=== PATIENT | male | born 2005 | race Two or more races ===

== ENCOUNTER 2025-05-24 13:00 | Emergency (ER) | payer OTHER ==
[~2025-05-24] VITALS: Ht 185.4 cm; Wt 77.2 kg
[2025-05-24 13:15] VITALS: BP 138/91; PULSE 89; RESP 15; O2SAT 99
--- NOTE | 2025-05-24 13:51 | RADIOLOGY REPORT ---
EXAM: DI HAND, COMPLETE (3VW MIN) CLINICAL INDICATION: HAND PAIN TECHNIQUE: DI HAND, COMPLETE (3VW MIN) Comparison: None FINDINGS/IMPRESSION: There is no evidence of acute fracture or dislocation. There is a radiopaque foreign body in the subcutaneous tissue between the 4th and 5th digits. The alignment is anatomical.
[2025-05-24] MEDS ORDERED: LIDOcaine 1% W/epiNEPHrine 1:200,000 10ml vial IJ STA (15:25)
[2025-05-24] MEDS: naproxen 500mg tablet PO ONE (16:12)
[2025-05-24] MEDS: TETanus/Pertussis (Acell)/Diphther VAC/PF (Tdap-Adult) 0.5ml syringe IMVAC ONE (16:14)
[2025-05-24] MEDS: LIDOcaine 1% W/epiNEPHrine 1:100,000 20ml vial IJ STA (16:16)
--- NOTE | 2025-05-24 16:38 | Physician Documentation ---
History of Present Illness ~ Chief Complaint: Foreign body Stated Complaint: NAIL IN FINGER Time Seen by MD: 15:25 OK to notify your PCP?: Yes Source: patient Mode of Arrival: POV Exam Limitations: no limitations HPI 19-year-old male presents with dewin staple to left pinky finger at the palmar side which occurred prior to coming in today. Tetanus unknown. No pain medication taken prior to arrival. Medication Reconciliation Allergies: Coded Allergies: No Known Allergies (Unverified , 05/24/25) Scheduled Cephalexin*Monohydrate* (Keflex*), 1 CAP PO Q8H Review of Systems All Other Systems at this time: Reviewed and Negative Physical Exam Vital Signs: RN Vital Signs have been reviewed: Yes, Temperature: 99.0, Source: Temporal, Heart Rate: 89, Respiratory Rate: 15, BP: 138/91, Pulse Oximetry: 99, Weight: 77.200 Pulse Oximetry Reflects: adequate oxygenation Physical Exam General: Alert, no distress. HEENT: No injection, moist mucous membranes. Neck: Full range of motion. Respiratory: No respiratory distress, equal chest rise and fall. Chest: No accessory muscle use. Cardiovascular: Regular rate and rhythm. Gastrointestinal: Nondistended. Extremities: Staple through left pinky finger on the palmar surface. Puncture wound to left ring finger from staple. Normal range of motion, good CSM, good sensation in finger. Neurologic: Oriented x4. Psychiatric: Normal mood and affect. Skin: Normal color, warm and dry. Procedures Laceration Repair : Anesthesia: Lidocaine w/ Epi Volume Anesthetic (mls): 2 (DIGITAL BLOCK TO LEFT 5TH FINGER) Prep: betadine, irrigated by nurse Foreign Body: removed (STABLE FROM 5TH FINGER) Dressing Applied: simple, non-adherent Splint Applied?: No Sling Applied?: No Tolerated Procedure Well?: yes, no complications Progress Results/Orders Reviewed/noted all lab results: Yes Results/Orders Orders - AGUSTINA STUBBS Laceration/I&D Tray Set Up (05/24/25 ) Completed Orders - AGUSTINA STUBBS Tetanus/Pertuss/Diph Acell/Pf (Boostrix (05/24/25 15:25) * Additional Wound Care Orders (05/24/25 15:25) Lidocaine 1% W/Epi 1:100,000 (Xylocaine (05/24/25 15:40) Naproxen Tablet (Naprosyn Tablet) (05/24/25 16:05) Vital Signs 05/24/25 05/24/25 13:15 16:53 Temp 99.0 99.0 Pulse 89 Resp 15 B/P (MAP) 138/91 Pulse Ox 99 EKG/XRAY/CT/US/VASC/MRI Bone/Soft Tissue X-Ray (Ext.) : Additional Comment Left hand x-ray as interpreted by me; no joint effusion, no acute fracture, no soft tissue swelling, no dislocation. foreign body seen in between the 4th and 5th fingers. Medical Decision Making Findings 19-year-old male presents with staple through his finger which caused a puncture wound to the adjacent finger. On exam good CSM, good range of motion and normal sensation and finger. I was able to numb the finger and remove the foreign body successfully. Last tetanus unknown, given while here in the department. Gave naproxen her pain relief. Due to the proximity to the bone, I started him on Keflex prevent any secondary infection. His hand x-ray shows no acute fracture or dislocation. He should follow up with his primary care provider in the next 3 days, watch for signs or symptoms of infection and return back here for any new or worsening symptoms. Finger Diff Dx:Considerations: Include: Fracture, Hematoma, Neurovascular injury Departure Disposition: 01 HOME / SELF CARE / HOMELESS Impression: Primary Impression: Puncture wound Additional Impression: Foreign body finger Condition: Stable Discharge Instructions: Puncture Wound, [id number] Additional Instructions: Please take all antibiotics as prescribed. Use Tylenol and/or ibuprofen for pain relief. Wound clean and dry. Referrals: NO PRIMARY CARE PROVIDER (PCP) Prescriptions Cephalexin*Monohydrate* (Keflex*) 500 Mg Capsule 1 CAP PO Q8H for 10 Days, #30 CAP Prov: AGUSTINA STUBBS RRT 05/24/25 Education Educated: Patient Educated regarding: diagnosis, treatment, prognosis, need for follow up Additional Comment Medical Screen Exam This patient recieved a medical screening examination. After reviewing the individual's medical complaints with presenting symptoms and performing an appropriate physical examination, it was determined that no immediate life- threatening emergency medical condition is present. This individual is also not a women having contractions. Signature Scribe Signature: . Attestation: Scribed for Agustina Stubbs Senior Agricultural Assistant by Agustina Briones NP . 05/24/25 16:43 PARTS OF THIS NOTE WERE CREATED USING [employer] VOICE RECOGNITION SOFTWARE PROGRAM. WHILE EFFORTS WERE MADE TO CORRECT ANY MISTAKES MADE BY THIS VOICE RECOGNITION SOFTWARE PROGRAM, NONSENSICAL PHRASES MAY REMAIN IN THIS NOTE. IN ADDITION, TH ERE MAY BE ERRORS AND SYNTAX, GRAMMAR, CONTENT AND SPELLING. AGUSTINA STUBBS RRT May 24, 2025 16:38
[2025-05-24] MEDS ORDERED: CEPH-585 PO (16:40)
[2025-05-24 16:53] VITALS: TEMP 99
== END 2025-05-24 16:54 | disposition home or self-care (01) ==
LOC: ER 13:02
DX: S61.245A Puncture wound with foreign body of left ring finger without damage to nail, initial encounter (principal); W45.8XXA Other foreign body or object entering through skin, initial encounter; Y93.89 Activity, other specified; Y92.89 Other specified places as the place of occurrence of the external cause; Y99.8 Other external cause status
CPT/HCPCS: 73130; 90471; 90715; 99284; J7030; A6449